=== PATIENT | female | born 1965 | race Caucasian/White ===

== ENCOUNTER → 2024-05-03 14:01 | Outpatient (REF) | payer OTHER, SELFPAY | LOC: HWRAD 14:01 | DX: R51.9 Headache, unspecified (principal) | CPT/HCPCS: 70450 ==

== ENCOUNTER → 2024-06-06 07:14 | Outpatient (REF) | payer OTHER, SELFPAY ==
[2024-06-06] MEDS: LEXISCAN 0.4 MG IV (09:10)
[2024-06-06] MEDS: AMINOPHYLLINE 75 MG IV (09:15)
== END ==
LOC: RCS 07:14
DX: I95.9 Hypotension, unspecified (principal)
CPT/HCPCS: 78452; 93017; A9500; J2785